=== PATIENT | male | born 1990 | race Two or more races ===

== ENCOUNTER 2017-03-17 02:26 | Emergency (ER) | payer OTHER ==
--- NOTE | 2017-03-17 03:07 | PDOC ---
History of Present Illness - General Chief Complaint: Pain, Acute Stated Complaint: LEG PAIN Time Seen by Provider: 03/17/17 03:07 History Source: Patient - History of Present Illness Initial Comments: 03/17/17 04:55 left leg pain rooled on ankle while going up step Past History - Past Medical History Allergies/Adverse Reactions: Allergies Allergy/AdvReac Type Severity Reaction Status Date / Time No Known Allergies Allergy Verified 03/17/17 04:55 Home Medications: Ambulatory Orders NK [No Known Home Medication] 09/08/15 - Immunization History Immunization Up to Date: Yes - Suicide/Smoking/Psychosocial Hx Smoking History: Never smoked Have you smoked in the past 12 months: No Hx Alcohol Use: No Drug/Substance Use Hx: No Substance Use Type: None *DC/Admit/Observation/Transfer Diagnosis at time of Disposition: Ankle sprain Qualifiers: Encounter type: initial encounter Involved ligament of ankle: unspecified ligament Laterality: left Qualified Code(s): S93.402A - Sprain of unspecified ligament of left ankle, initial encounter; S93.402A - Sprain of unspecified ligament of left ankle, initial encounter - Discharge Dispostion Disposition: HOME - Referrals Referrals: Jay Culver MD [Staff Physician] - - Patient Instructions Printed Discharge Instructions: Ankle Sprain Additional Instructions: take ibuprofen every 6 hours as needed for pain follow up with ortho as soon as possible. - Post Discharge Activity Forms/Work/School Notes: Back to Work
[2017-03-17 03:34] VITALS: BP 133/90; PULSE 67; BMI 25.1
== END 2017-03-17 05:17 | disposition home or self-care (01) ==
LOC: JER 02:26
DX: S93.402A Sprain of unspecified ligament of left ankle, initial encounter (principal); X50.1XXA Overexertion from prolonged static or awkward postures, initial encounter; Y93.89 Activity, other specified; Y92.89 Other specified places as the place of occurrence of the external cause; Y99.8 Other external cause status
CPT/HCPCS: 73610-TC-LT; 73630-TC-LT; 99281-25